=== PATIENT | male | born 1990 | race Two or more races ===

== ENCOUNTER 2020-05-29 10:41 | Emergency (ER) | payer SELFPAY ==
[~2020-05-29] VITALS: Ht 185.4 cm; Wt 75.4 kg
[2020-05-29] MEDS ORDERED: MOTRIN800 MG PO (14:08)
[2020-05-29 14:15] VITALS: BP 116/66
== END 2020-05-29 14:15 | disposition home or self-care (01) | DRG 538 ==
LOC: ED 10:41
DX: S73.102A Unspecified sprain of left hip, initial encounter (principal); X58.XXXA Exposure to other specified factors, initial encounter

== ENCOUNTER 2020-06-02 19:16 | Emergency (ER) | payer SELFPAY ==
[~2020-06-02] VITALS: Ht 185.4 cm; Wt 75.4 kg
[~2020-06-02 19:16] MED LIST: MOTRIN800 MG PO
[2020-06-02 20:00] VITALS: BP 116/61
== END 2020-06-02 20:00 | disposition home or self-care (01) | DRG 556 ==
LOC: ED 19:16
DX: M25.552 Pain in left hip (principal)

== ENCOUNTER 2021-08-16 18:17 | Emergency (ER) | payer OTHER ==
[~2021-08-16] VITALS: Ht 185.4 cm; Wt 77.8 kg
[2021-08-16] MEDS ORDERED: MOTRIN800 MG PO (19:30)
[2021-08-16 20:00] VITALS: BP 135/72
== END 2021-08-16 20:00 | disposition home or self-care (01) | DRG 563 ==
LOC: ED 18:17
DX: S46.911A Strain of unspecified muscle, fascia and tendon at shoulder and upper arm level, right arm, initial encounter (principal); V43.53XA Car driver injured in collision with pick-up truck in traffic accident, initial encounter